=== PATIENT | male | born 1990 | race Caucasian/White ===

== ENCOUNTER 2018-05-16 20:58 | Inpatient (IN) | payer BC, OTHER ==
[~2018-05-16] VITALS: Ht 185.4 cm; Wt 77.1 kg
--- NOTE | 2018-05-16 22:15 | NUR ---
INTAKE ASSESSMENT BP: 125/73, HR: 84 RR:16, SpO2:98% Pt is in stable condition and is able to be admitted on the unit. Unit protocols regarding medication and vital signs Q4H were explained. Pt verbalized understanding. Will continue admission upon arrival on the unit.
[2018-05-16 22:30] VITALS: BP 126/84
[2018-05-16] MEDS ORDERED: HYDROXYZINE PAMOATE 25 MG CAPSULE PO PRN (22:30)
[2018-05-16] MEDS ORDERED: LOPERAMIDE HCL 2 MG CAPSULE PO PRN ×2 (22:30)
[2018-05-16] MEDS ORDERED: CLONIDINE HCL 0.1 MG TABLET PO PRN (22:30)
[2018-05-16] MEDS ORDERED: MAG HYDROX/AL HYDROX/SIMETH 30 ML LIQUID UDC PO PRN (22:30)
[2018-05-16] MEDS ORDERED: MAGNESIUM HYDROXIDE 30 ML LIQUID UDC PO PRN (22:30)
[2018-05-16] MEDS ORDERED: ONDANSETRON ODT 4 MG TAB.RAPDIS SL PRN (22:30)
[2018-05-16] MEDS ORDERED: ONDANSETRON 4 MG/2 ML VIAL IM PRN (22:30)
[2018-05-16] MEDS ORDERED: DICYCLOMINE HCL 20 MG TABLET PO PRN (22:30)
[2018-05-16] MEDS ORDERED: MIRALAX 17 GM POWD.PACK PO PRN (22:30)
[2018-05-16] MEDS ORDERED: ACETAMINOPHEN 325 MG TABLET PO PRN (22:30)
[2018-05-16] MEDS ORDERED: BUPRENORPHINE HCL 2 MG TAB.SUBL SL PRN (22:30)
--- NOTE | 2018-05-16 22:35 | NUR ---
Admission Note Patient is a 27-year-old, male, arrived to the floor at 2227 to be admitted for medically supervised withdrawal from Opiates (Heroin and Suboxone). The patient was born and raised in [place] [facility]. He flew in today from the said city. The patient appears mildly intoxicated from Suboxone and verbalized having racing thoughts. Patient is also observed to be in depressed mood. No complaints of pain at this time, with verbalization: "I think I'm good for tonight. I'm sure I will actually start withdrawals in the morning." When asked for his reason of being here at [facility] for detoxification, patient verbalized: "I want to be completely off any substance including Suboxone. I want to be free from using anything so I could focus on finishing college and my girlfriend and have kids." Pt is AAOx4 and cooperative. Patient reports being allergic to Pseudoephedrin. The patient states that withdrawal symptoms include anxiety, sweating, flushed skin, chills, hot flushes, restless legs, emotional volatility, generalized muscle pain and agitation. Patient denies a history of seizure but verbalized experiencing multiple blackouts due to Heroin use. Patient stated that yesterday, 05/15/2018, he "passed out" while in his car at the side of the road after he injected 0.5 gm of Heroin. Patient stated that he could recall the last 3 treatment and detox centers he has been to and they are as follows: 1) [facility] [place], [place] x 30 days- April 2017 2) [facility] ([facility], [place] x 7 days in 2012 and 2013 3) [place], [place] x 30 days in 2011 Per patient, after he was released from [facility], he was prescribed Suboxone 8 mg SL BID PRN and he said that he was using 8 mg SL daily for the past year until he relapsed from using Heroin 2 weeks ago. His reason for relapsing is due to meeting old friends who are using Heroin and influenced him to use. Substance use are as follows: 1. Heroin- Patient stated that he first used at age 20. He verbalized that he first used this substance "as a way to be accepted among friends in school." He started smoking Heroin but eventually shift to using IV. For the past 2 weeks, he has been using 0.5 gm IV daily except on 05/10/18 when he used Suboxone on that day. Last use was on 05/15/2018 at 2000 and used 0.5 gm IV. 2) Suboxone- Patient stated that he first used at age 25. He verbalized that he was prescribed this medication by his PCP to control his Heroin cravings. He has been using this medication for 1 year since his discharge from [facility] last April 2017 until he relapsed and used Heroin instead 2 weeks ago. For the past 2 weeks, patient only used twice and used 8 mg SL each time on 05/10/2018 and 05/16/2018 1400. 3) Alcohol: Wine and Beer-Patient stated that he first used at age 16 because "you are cool when you drink because everybody in school started doing it." He explained that "alcohol is not really a problem for me." Patient verbalized that he drinks every other day, either 1 glass/150 ml of wine or 1 can of 12-oz beer. He would only drink wine for the day or beer for the day, never both. Last drink was on 05/14/2018, 1 12-oz can of beer. Patient verbalized that his parents are and that he lives with his mother. He stated that his father has a history of Alcoholism and Cocaine use. His mother and girlfriend are very supportive of him and are his main support system." Patient stated that he has no Psychiatrist. His Primary Care Physician is Dr. Jean Conley in [place], [place]. Patient verbalized that he is determined to quit his use of Heroin and Suboxone so that he could finish school, have a career and start a family. He also wants to get sober for good because of his overdose history. He verbalized that yesterday, he passed out on the side of the street inside his car after he injected Heroin, "something bad could have happened to me yesterday and I could have ." His longest sobriety was 7 months in 2011 when he was in long term. Patient verbalized that he is interested in going to a treatment center after his stay at [facility]. Currently, he took a leave from his work at [employer]. Vital signs are taken and as follows: BP: 126/54, HR: 83, RR: 18, SpO2: 98%, Temp: 98.1. Pulse is palpable and regular. Respirations are even and unlabored. Lung sounds clear. Bowel sounds active x4 quadrants. Last bowel movement was in the morning of yesterday, 05/15/2018. Per patient, his bowel movement is mostly every other day. No abdominal pain reported. Skin is intact. Patient follows a regular diet at home. Full Code. Height is 6'1" and weighs 170 lbs per standing scale. Patient stated that he chews tobacco about half a can every day. Patient denies smoking cigarettes. Patient stated that his medical history are as follows: Anxiety, Depression (For which he takes Sertraline 200 mg PO daily), Left Knee ACL tear and repair (2009), Suicide Attempt in 2012 by Overdosing on Heroin, 5150 due to the said Suicide Attempt at [facility]. Patient reports no Suicidal Ideation nor Homicidal Ideation at the moment. Patient stated that besides Sertraline, he takes Suboxone 8 gm SL BID PRN. Educated patient about plan of care including detox, group therapy, individual therapy, and discharge planning. Encouraged patient to be open and honest and verbalized support for patient in his recovery. Upon admission to the floor, COWS=7. Dr. Olvera was at the unit and was able to assess the patient. Patient will start on a 3-day Subutex taper tomorrow with PRN Subutex available for tonight. Will continue to monitor.
[2018-05-16 22:39] LABS: BASOPHILS % (AUTO) 0.6 % (0.0-2.0); EOSINOPHILS # (AUTO) 0.1 K/uL (0.0-0.7); EOSINOPHILS % (AUTO) 1.8 % (0.0-7.0); HEMATOCRIT 39.3 % (36.7-47.1); HEMOGLOBIN 13.7 g/dL (12.5-16.3); LYMPHOCYTES # (AUTO) 2.2 K/uL (20.0-40.0); LYMPHOCYTES % (AUTO) 32.4 % (20.5-51.5); MEAN CORPUSCULAR HEMOGLOBIN 29.2 uug (23.8-33.4); MEAN CORPUSCULAR HGB CONC 35 g/dL (32.5-36.3); MEAN CORPUSCULAR VOLUME 83.7 fL (73.0-96.2); MONOCYTES # (AUTO) 0.5 K/uL (2.0-10.0); MONOCYTES % (AUTO) 7.8 % (0.0-11.0); NEUTROPHILS # (AUTO) 3.9 K/uL (1.8-8.9); NEUTROPHILS % (AUTO) 57.4 % (38.5-71.5); PLATELET COUNT (AUTO) 328 K/uL (152-348); RED BLOOD CELL COUNT(AUTO) 4.69 MIL/uL (4.06-5.63); WHITE BLOOD COUNT (AUTO) 6.8 K/uL (3.6-10.2)
[2018-05-16 22:45] LABS: *AMPHETAMINE, URINE NEGATIVE (NEGATIVE); *BARBITURATE, URINE NEGATIVE (NEGATIVE); *CANNABINOID, URINE NEGATIVE (NEGATIVE); *COCCAINE, URINE NEGATIVE (NEGATIVE); *OPIATE, URINE POSITIVE (NEGATIVE); *PHENCYCLIDINE SCREEN,URINE NEGATIVE (NEGATIVE)
[2018-05-16 22:50] LABS: ALANINE AMINOTRANSFERASE 34 U/L (16-63); ALKALINE PHOSPHATASE 70 U/L (50-136); AMYLASE 46 U/L (25-115); ASPARTATE AMINOTRANSFERASE 15 U/L (15-37); BILIRUBIN,TOTAL 0.3 mg/dL (0.2-1.0); CARBON DIOXIDE 31 mmol/L (21-32); CHLORIDE 101 mmol/L (98-107); CREATININE 0.8 mg/dL (0.6-1.3); GLUCOSE 116 mg/dL (74-106); LIPASE 73 U/L (73-393); MAGNESIUM 1.9 mg/dL (1.8-2.4); POTASSIUM 3.9 mmol/L (3.5-5.1); TOTAL PROTEIN, SERUM 7.1 g/dL (6.4-8.2); UREA NITROGEN, BLOOD 13 mg/dL (7-18)
[2018-05-16 22:51] LABS: ETHANOL < 3 MG/DL (0-0)
[2018-05-16 22:59] LABS: THYROID STIMULATING HORMONE 1.934 mIU/mL (0.358-3.740)
[2018-05-16] MEDS: diphenhydrAMINE 50 MG CAPSULE PO PRN (23:36)
--- NOTE | 2018-05-16 23:36 | NUR ---
PRN Benadryl Pt c/o inability to sleep. Administered Benadryl 50 mg PO PRN as ordered. Will reassess.
[2018-05-17] VITALS: BP 122/79
[2018-05-17] MEDS ORDERED: BUPR1FIL3 SL (00:05)
--- NOTE | 2018-05-17 00:40 | NUR ---
Benadryl reassess Patient is asleep on bed, with no SOB nor facial grimacing noted.
[2018-05-17] MEDS ORDERED: SERT100T12 PO (00:42)
[2018-05-17 04:00] VITALS: BP 127/85
--- NOTE | 2018-05-17 07:23 | NUR ---
End of Shift Patient asleep on bed but arousable, noted to be anxious and c/o increasing generalized tensed muscle, currently=3/10. Per patient, he wanted to sleep some more and would be ready by the time the morning med pass comes. Patient continues to be melancholic and with intermittent facial grimacing. Encouraged patient to use call light button when needing assistance. Call light button within reach. Latest COWS=10, slept for 5 hours. Endorsed to AM shift nurse for continuity of care.
--- NOTE | 2018-05-17 07:30 | NUR ---
Start of Shift Construction Supervisor/Carpenter received report on 27 year old male admitted to [facility] on 05/16/18 for medical management of Opiate withdrawals. Pt endorses an allergy to Pseudo-Ephedrine, full code and regular diet. Pt denies any PMH, with a PPH of anxiety and depression. Pt denies any seizure history. Pt is scheduled to start a Subutex taper this am last COWS 10, per NOC report. Pt administered Benadryl(insomnia) as PRN medication on NOC, per report. Construction Supervisor/Carpenter encounters pt resting in bed. Pt is A/O x4 and able to make his needs known. Pt with a linear thought process and clear speech pattern. Pt endorses starting to withdraw at this time, with last use of Suboxone at 1400 on 05/16/18. Pt endorses nausea, chills, and body aches. Pt is diaphoretic, tremulous, anxious and piloerection of the skin. Construction Supervisor/Carpenter educated pt on detoxification process related to pts taper and treatment of symptoms. Pt endorses previous withdrawal episodes and has experience precipitious withdrawals in the past and understands the importance of not starting taper too soon. Bed in low position with wheels locked and side rails up x2. Will continue to monitor, support and encourage according to plan of care.
--- NOTE | 2018-05-17 08:00 | NUR ---
COWS 16 Pt states, " It is starting, I am starting." Pt is diaphoretic, tremulous, anxious and restless with a stuffy nose and piloerection of the skin. Pt complains of nausea and body aches, along with chills. Will continue to monitor, support and encourage according to plan of care. Addendum: 05/17/18 at 1302 by HUSSAIN COOLEY RN LE: Pt denies the need for any medication to treat symptoms at this time, " I am doing all right."
[2018-05-17 08:32] VITALS: BP 114/68
[2018-05-17] MEDS ORDERED: TUBERCULIN,PURIF.PROT.DERIV. 5 TU/0.1 ML TEST ID ONE (09:00)
[2018-05-17] MEDS: BUPRENORPHINE HCL 2 MG TAB.SUBL SL SCH ×2 (09:37→20:30)
--- NOTE | 2018-05-17 12:50 | NUR ---
COWS 18 Pt is restless, anxious, diaphoretic, nauseous, has chills and complains of body aches and stomach cramps. Pt denies the need for PRN Subutex at this time. Will continue to monitor, support and encourage according to plan of care.
[2018-05-17 12:51] VITALS: BP 136/77
[2018-05-17] MEDS ORDERED: SERTRALINE HCL 100 MG TABLET PO SCH (13:30)
[2018-05-17] MEDS: SERTRALINE HCL 100 MG TABLET PO SCH (13:59)
--- NOTE | 2018-05-17 14:03 | NUR ---
PRN Subutex Pt with COWS 18, complains of muscle aches, stomach cramps and nausea. Pt is anxious, restless, diaphoretic, tremulous and has piloerection of the skin. Freelance Web Designer administered medication per MD order with pt tolerating well. Will continue to monitor, support and encourage according to plan of care.
--- NOTE | 2018-05-17 14:33 | NUR ---
PRN Subutex Re-Assessment Pt endorses some relief. Pt remains with nausea and muscle discomfort. Pt is anxious and restless with moist skin and piloerecton of the skin. Will continue to monitor, support and encourage according to plan of care.
[2018-05-17 16:54] VITALS: BP 138/75
--- NOTE | 2018-05-17 16:57 | NUR ---
COWS 15 Pt has tremors, diaphoresis and anxiety, complains of stomach ache and chills.Will continue to monitor, support and encourage according to plan of care.
--- NOTE | 2018-05-17 19:01 | NUR ---
End of Shift Working Foreman provided report on 27 year old male admitted to [facility] on 05/16/18 for medical management of Opiate withdrawals. Pt endorses an allergy to Pseudo-Ephedrine, full code and regular diet. Pt denies any PMH, with a PPH of anxiety and depression. Pt denies any seizure history. Pt started a Subutex this morning with last COWS 15. Pt administered Subutex(withdrawals symptoms) as PRN medication. Pt is A/O x4 and makes needs known. Linear thought process with clear speech pattern. Flat affect with depressed mood. Pt has isolated to his room, guarded and withdrawn from peer. Cooperative on approach. Pt is diaphoretic, fine tremors, anxious, restless and complains of nausea, muscle spasms and chills, denies need for additional medication. Bed in low position with wheels locked and side rails up x2.
[2018-05-17 20:00] VITALS: BP 125/86
--- NOTE | 2018-05-17 20:00 | NUR ---
Start of Shift Patient sitting on bed, noted to have tremors, facial grimacing and c/o increasing anxiety. Per patient, generalized muscle pain=5/10. PRN medications will be administered. Patient is also diaphoretic and tremulous. Encouraged patient to use call light button when needing assistance. Call light button within reach. Latest COWS=14. Will continue to monitor.
[2018-05-17] MEDS: METHOCARBAMOL 750 MG TABLET PO PRN (20:30)
[2018-05-17] MEDS: diphenhydrAMINE 50 MG CAPSULE PO PRN (20:30)
--- NOTE | 2018-05-17 20:31 | NUR ---
PRN Robaxin and Benadryl Pt c/o generalized muscle pain=7/10 and inability to sleep. Administered Robaxin 750 mg PO PRN and Benadryl 50 mg PO PRN. Will reassess.
--- NOTE | 2018-05-17 21:30 | NUR ---
Lottie and Bridget reassess Patient verbalized that his generalized muscle pain decreased to 3/10 and verbalized feeling sleepy.
[2018-05-18] VITALS: BP_SYST 122; BP_DIAS 3; BP_DIAS 63
[2018-05-18 04:00] VITALS: BP 115/61
--- NOTE | 2018-05-18 07:13 | NUR ---
End of Shift Patient continues to have tremors along with c/o increasing anxiety and generalized muscle, current level =3-4/10. Patient is starting to feel tremulous. Patient also noted to be melancholic and isolative. Call light within reach. Latest COWS=10, slept for 7 hours. Endorsed to AM shift nurse for continuity of care.
--- NOTE | 2018-05-18 07:30 | NUR ---
Start of Shift Stone Splitter received report on 27 year old male admitted to [facility] on 05/16/18 for medical management of Opiate withdrawals. Pt endorses an allergy to Pseudo-Ephedrine, full code and regular diet. Pt denies any PMH, with a PPH of anxiety and depression. Pt denies any seizure history. Pt is currently on a 3 day Subutex taper with last COWS 10, per NOC report. Pt administered Benadryl(insomnia) and Robaxin(muscle spasms) as PRN medication on NOC, per report. Stone Splitter encounters pt in pts room. Pt is A/O x4 and makes needs known. Calm, cooperative and drowsy. Denies any complaints at this time. Bed in low position with wheels locked and side rails up x2. Will continue to monitor, support and encourage according to plan of care.
--- NOTE | 2018-05-18 08:00 | NUR ---
COWS 12 Pt is diaphoretic with fine tremors. Pt is anxious and restless with nausea and body aches and muscle spasms, with chills. Estate Tax Examiner will continue to monitor, support and encourage according to plan of care.
[2018-05-18 08:06] LABS: HEPATITIS B SURFACE AG Negative (Negative)
[2018-05-18 08:17] VITALS: BP 120/73
[2018-05-18] MEDS: SERTRALINE HCL 100 MG TABLET PO SCH (08:32)
[2018-05-18] MEDS: BUPRENORPHINE HCL 2 MG TAB.SUBL SL SCH ×3 (08:32→20:21)
[2018-05-18 12:00] VITALS: BP 116/79
--- NOTE | 2018-05-18 12:00 | NUR ---
COWS 14 Pt is diaphoretic, tremulous, anxious and restless with complaints of nausea and chills. Will continue to monitor, support and encourage according to plan of care.
[2018-05-18 16:30] VITALS: BP 119/78
--- NOTE | 2018-05-18 16:30 | NUR ---
COWS 13 Pt is diaphoretic, anxious and restless with nausea, chills, agitation and myalgia. Will continue to monitor, support and encourage according to plan of care.
--- NOTE | 2018-05-18 19:10 | NUR ---
End of Shift Survey Associate provided report on 27 year old male admitted to [facility] on 05/16/18 for medical management of Opiate withdrawals. Pt endorses an allergy to Pseudo-Ephedrine, full code and regular diet. Pt denies any PMH, with a PPH of anxiety and depression. Pt denies any seizure history. Pt is currently on a 3 day Subutex taper with last COWS 13, recorded at 1630. Pt is anxious and restless, diaphoretic and tremulous. Pt has complaints of nausea and chills along with myalgia. Pt not administered any PRN medication this shift. Pt is A/O x4 and makes needs known. Linear thought process and clear speech pattern. Pt is visible on the unit and social with peers. Bed in low position with wheels locked and side rails up x2.
[2018-05-18 20:00] VITALS: BP 124/84
--- NOTE | 2018-05-18 20:00 | NUR ---
Start of Shift Pt is a 27 year old male admitted for Opiate withdrawal, placed on a 3 day Subutex taper. During time of assessment, pt presents in room and is noted with anxiety, restlessness, muscle aches, nasal stuffiness and tearing eyes, tremors noted COWS 14, scheduled taper medications due. Safety measures in place, will continue to monitor.
[2018-05-18] MEDS: diphenhydrAMINE 50 MG CAPSULE PO PRN (21:55)
[2018-05-18] MEDS: METHOCARBAMOL 750 MG TABLET PO PRN (21:55)
--- NOTE | 2018-05-18 21:55 | NUR ---
PRN Robaxin & Benadryl Administration Pt reports muscle aches in lower legs, and requests sleeping aid. Robaxin 750mg PRN and Benadryl 50mg PRN administered. Safety measures in place, will continue to monitor.
--- NOTE | 2018-05-18 22:55 | NUR ---
PRN Robaxin & Benadryl Reassessment Pt is noted to be in bed, sleeping, resp even/unlabored. Safety measures in place, will continue to monitor.
[2018-05-19] VITALS: BP 136/81
--- NOTE | 2018-05-19 | NUR ---
COWS Deferred COWS deferred d/t pt sleeping, to assess while pt is awake as ordered. Pt is sleeping, resp even/unlabored, safety measures in place, will continue to monitor.
[2018-05-19 04:00] VITALS: BP 125/81
--- NOTE | 2018-05-19 07:10 | NUR ---
End of Shift Pt is a 27 year old male admitted for Opiate withdrawal, placed on a 3 day Subutex taper. During shift, pt presented in room and was noted with anxiety, restlessness, muscle aches, nasal stuffiness and tearing eyes, tremors noted - scheduled medications administered, latest COWS 14. Robaxin 750mg PRN and Benadryl 50mg PRN administered during shift. Pt slept for 6 hours, intake of 500 ml PO and voids x4. Safety measures in place. Endorsed onto day shift nurse.
--- NOTE | 2018-05-19 07:35 | NUR ---
START OF SHIFT Pt is a 27 yr old male, AA&Ox4. pt was admitted on 05/16/18 for Opiate withdrawal and is on 3 dya Subutex taper as ordered. Received report from steward/stewardess night nurse. Pt was given Robaxin PRN Benadryl PRN during the night. Pt was able to sleep for 6 hrs. Last COWS score was 14. Pt is observed with anxiety m/b difficulty staying still. Pt is c/o muscle aching, restlessness, sweats and lack of appetite. Skin is intact, warm and moist to touch. Pt was encouraged increase fluid intake for hydration. Safety precautions observed. Call light is within reach. Will continue to monitor.
[2018-05-19 08:00] VITALS: BP 99/57
[2018-05-19] MEDS ORDERED: BUPRENORPHINE HCL 2 MG TAB.SUBL SL SCH (09:00)
[2018-05-19] MEDS: IBUPROFEN 400 MG TABLET PO PRN ×2 (09:04→17:26)
[2018-05-19] MEDS: SERTRALINE HCL 100 MG TABLET PO SCH (09:04)
--- NOTE | 2018-05-19 09:06 | NUR ---
PRN GIVEN Pt is c/o generalized body aches 5/10. Pt is noted with anxiety, restlessness and sweats. Pt is c/o chills. COWS score was 10. Pt received Motrin 400mg PO PRN and Subutex 2mg SL as scheduled at 0900. Medication was raheem well. Encouraged increase fluid intake for hydration. Will continue to monitor.
--- NOTE | 2018-05-19 10:02 | NUR ---
PRN RE-ASSESSMENT Motrin 400mg PO PRN was effective. Pt denies any pain at this time. Encouraged increase fluid intake. will continue to monitor.
[2018-05-19] MEDS ORDERED: TRAZODONE 50 MG TABLET PO PRN (10:15)
[2018-05-19 12:00] VITALS: BP 133/79
--- NOTE | 2018-05-19 12:00 | NUR ---
COWS 6 Pt is c/o anxiety, restlessness, sweats and chills. Pt states of yawning more than once. COWS score was 6. Will continue to monitor
[2018-05-19] MEDS ORDERED: TRAZ-213 PO (13:09)
[2018-05-19] MEDS ORDERED: SERT100T12 PO (13:09)
[2018-05-19] MEDS ORDERED: HYDR-3895 PO (13:09)
[2018-05-19] MEDS ORDERED: METH-406 PO (13:09)
[2018-05-19] MEDS ORDERED: IBUP-1953 PO (13:09)
[2018-05-19] MEDS ORDERED: CLON0.1T14 PO (13:09)
[2018-05-19 16:00] VITALS: BP 122/67
[2018-05-19] MEDS: METHOCARBAMOL 750 MG TABLET PO PRN ×2 (17:26→23:03)
--- NOTE | 2018-05-19 17:27 | NUR ---
PRN GIVEN Pt c/o generalized body aches 6/10 and muscle spasms. Facial grimacing is observed. Pt was given Motrin 400mg PO PRN and Robaxin 750mg PO PRN as ordered. Encouraged increase fluid intake. Will continue to monitor.
--- NOTE | 2018-05-19 18:27 | NUR ---
PRN RE-ASSESSMENT Motrin 400mg PO PRN and Robaxin 750mg PO PRN was effective. Encouraged increase fluid intake for hydration.
--- NOTE | 2018-05-19 18:51 | NUR ---
START OF SHIFT NOTE: This is report on patient, an 27 year old male, admitted to [facility] on 05/16/2018 for Opioid withdrawal, completed ordered 3 day Subutex taper, which tolerated well. The patient remains compliant with treatment plan, medications, and diet regime. Patient scheduled for discharging tomorrow at 0930. The patient is alert and oriented x4, with stable gait, soft clear speech. The patient reports allergy to Pseudoephedrine, is on Full Code, Regular Diet, Fall and Seizures Precautions. The patient denies seizures history. Throughout the day shift, patient presented with mild withdrawal symptoms such as anxiety, agitation, depression, nervousness, mild body aches, myalgia, sweating, restlessness, fatigue, and yawning. Last COWS=6 at 1600. PRN Motrin 400 mg PO administrated for pain at 1726, PRN Robaxin 750 mg PO administrated for myalgia at 1726, and were effective by day shift nurse report. Encouraged to attend group activities. Encouraged to intake fluids as tolerated. All needs met. Safety measures: Call light within reach, bed locked in lowest position, padded bed rails up x2. Endorsed by outgoing day shift nurse. Will continue to monitor closely.
--- NOTE | 2018-05-19 18:51 | NUR ---
END OF SHIFT Pt is a 27 yr old male, AA&Ox4. Pt was admitted on 05/16/18 for opiate w/d and has completed a 3 day Subutex taper as ordered. Pt has been cooperative with medication regimen and plan of care. Pt has been attending group therapy during the day. Pt has been c/o anxiety, agitation, muscle aching, restlessness and sweats. Skin is intact, warm and moist to touch. Pt received Motrin 400mg PO PRN at 0900 for muscle aches and received Motrin 400mg PO PRN and Robaxin 750mg PO PRN at 1726. Medication was effective. Last COWS score was 6 at 1600. Pt is to be discharged tomorrow on 05/20/18 to [facility] . Pt was encouraged increase fluid intake for hydration. Safety precautions observed. Endorsed to master automotive technician nurse to continue with care.
[2018-05-19 20:00] VITALS: BP 129/80
--- NOTE | 2018-05-19 20:00 | NUR ---
COWS ASSESSMENT COWS=9 at 1999. The patient appears sad ,worried, with anxious mood and flat affect. The patient presented with mild withdrawal symptoms such as anxiety, agitation, depression, nervousness, tachycardia (106 bpm), obv. irritability, sweating, restlessness, fatigue, and yawning. Encouraged to intake fluids as tolerated. All needs met. Safety measures: Call light within reach, bed locked in lowest position, padded bed rails up x2. Will continue to monitor closely.
--- NOTE | 2018-05-19 21:19 | NUR ---
PRN VISTARIL 50 MG PO ADMINISTRATION Patient c/o increased anxiety. PRN Vistaril 50 mg PO administrated at 2118 as ordered. The patient tolerated well. Safe and calm environment provided. All needs met. Safety measures: Call light within reach, bed locked in lowest position, padded bed rails up x2. Will continue to monitor closely.
--- NOTE | 2018-05-19 22:19 | NUR ---
PRN VISTARIL PO RE-ASSESSMENT Patient reports, "Medication help to me, and my anxiety decreased now". PRN Vistaril 50 mg PO administrated at 2118 was effective. Safe and calm environment provided. All needs met. Safety measures: Call light within reach, bed locked in lowest position, padded bed rails up x2. Will continue to monitor closely.
--- NOTE | 2018-05-19 23:00 | NUR ---
PRN DESYREL (TRAZODONE 50 MG) 50 MG PO ADMINISTRATION Patient c/o insomnia. PRN Desyrel ([id number] mg) 50 mg PO administrated at 2300 as ordered. The patient tolerated well. Safe and calm environment provided. All needs met. Safety measures: Call light within reach, bed locked in lowest position, padded bed rails up x2. Will continue to monitor closely.
--- NOTE | 2018-05-19 23:03 | NUR ---
PRN ROBAXIN (METHOCARBAMOL 750 MG TABLET) 750 MG PO ADMINISTRATION Patient c/o myalgia. PRN Robaxin (Methocarbamol 750 mg tablet) 750 mg PO administrated at 2303 as ordered. The patient tolerated well. Safe and calm environment provided. All needs met. Safety measures: Call light within reach, bed locked in lowest position, padded bed rails up x2. Will continue to monitor closely.
[2018-05-20] VITALS: BP 115/53
--- NOTE | 2018-05-20 | NUR ---
PRN RE-ASSESSMENT Patient is sleeping. Respirations are even and unlabored. RR:16. PRN Desyrel ([id number] mg) 50 mg PO administrated at 2300 was effective. The patient tolerated well. Safe and calm environment provided. All needs met. Safety measures: Call light within reach, bed locked in lowest position, padded bed rails up x2. Will continue to monitor closely.
--- NOTE | 2018-05-20 | NUR ---
COWS DEFERRED Patient is sleeping. Respirations are even and unlabored. COWS deferred r/t patient sleeping. COWS assessment will be done while patient is awake as ordered. Safe and calm environment provided. All needs met. Safety measures: Call light within reach, bed locked in lowest position, padded bed rails up x2. Will continue to monitor closely.
--- NOTE | 2018-05-20 00:03 | NUR ---
PRN RE-ASSESSMENT Patient is sleeping. Respirations are even and unlabored. RR:16. PRN Robaxin (Methocarbamol 750 mg tablet) 750 mg PO administrated at 2303 was effective. The patient tolerated well. Safe and calm environment provided. All needs met. Safety measures: Call light within reach, bed locked in lowest position, padded bed rails up x2. Will continue to monitor closely.
[2018-05-20 04:00] VITALS: BP 106/55
--- NOTE | 2018-05-20 04:00 | NUR ---
COWS ASSESSMENT COWS=8 at 2000. The patient c/o anxiety, agitation, depression, nervousness, Irritability, sweating, restlessness, fatigue, and yawning. Encouraged to intake fluids as tolerated. All needs met. Safety measures: Call light within reach, bed locked in lowest position, padded bed rails up x2. Will continue to monitor closely.
--- NOTE | 2018-05-20 07:22 | NUR ---
END OF SHIFT NOTE: Endorsed patient, an 27 year old male, presented for Opioid withdrawal, completed ordered 3 day Subutex taper, which tolerated well. The patient is alert and oriented x4, with stable gait, soft clear speech. The patient reports allergy to Pseudoephedrine, is on Full Code, Regular Diet, Fall and Seizures Precautions. The patient denies seizures history. Patient c/o anxiety, agitation, depression, nervousness, myalgia, sweating, restlessness, fatigue, and yawning. COWS=9 at 2000, COWS=8 at 0000. The most recent COWS =8 at 0400. PRN Vistaril 50 mg PO administrated for anxiety at 2119, PRN Desyrel ([id number] mg) 50 mg PO administrated at 2300, PRN Robaxin (Methocarbamol 750 mg tablet) 750 mg PO administrated for myalgia at 2303, and were effective. The patient remains compliant with treatment plan, medications, and diet regime. Patient slept for 5 hours, intake 1012 ml, output: voided x1. Patient scheduled for discharging today at 0930. Encouraged to attend group activities. Encouraged to intake fluids as tolerated. All needs met. Safety measures: Call light within reach, bed locked in lowest position, padded bed rails up x2. Endorsed to incoming day shift nurse.
--- NOTE | 2018-05-20 07:30 | NUR ---
Start of Shift Wagon Driver received report on 27 year old male admitted to [facility] on 05/16/18 for medical management of Opiate withdrawals. Pt endorses an allergy to Pseudo-Ephedrine, full code and regular diet. Pt denies any PMH, with a PPH of anxiety and depression. Pt denies any seizure history. Pt has completed a three day Subutex taper and is scheduled to discharge this morning. Pt administered Trazodone(insomnia), Vistaril(anxiety) and Robaxin(muscle spasms) as PRN medication on NOC, per report. Wagon Driver encounters pt in pts room. Pt is resting with eyes closed, even and unlabored respirations noted. Bed in low position with wheels locked and side rails up x2. Will continue to monitor, support and encourage according to plan of care.
--- NOTE | 2018-05-20 08:00 | NUR ---
COWS 5 Pt is anxious and restless with moist skin and complains of myalgia and nausea. Will continue to monitor, support and encourage according to plan of care.
[2018-05-20] MEDS: SERTRALINE HCL 100 MG TABLET PO SCH (08:28)
[2018-05-20 08:33] VITALS: BP 109/62
--- NOTE | 2018-05-20 09:25 | NUR ---
Discharge Assessment Pt is A/O x4 and makes his needs known. Linear thought process with clear speech pattern. Pt is anxious and restless. States, " I do not know if I am ready to leave physically." When asked about emotionally ready for treatment, pt states, " I am ready to get sober." Pt with a flat affect and depressed mood. Pt was educated on importance of continued sobriety and continued follow-up care. Pt was educated on discharge diagnosis, discharge educational material and all related discharge paperwork, including discharge packet. Pt was educated on name, route, dose, timing and indication of all prescribed medications. Pt was provided with prescriptions. Pt denies any further comments, questions or concerns. Pt was escorted to private car for transportation to [facility].
== END 2018-05-20 09:25 | disposition other institution (70) | DRG 895 ==
LOC: SRC 21:38
PROVIDERS: ADMIT Family Medicine Addiction Medicine; ATTEND Family Medicine Addiction Medicine
PROC: HZ2ZZZZ Detoxification Services for Substance Abuse Treatment (ICD-10-PCS; principal; 2018-05-16)
PROC: HZ41ZZZ Group Counseling for Substance Abuse Treatment, Behavioral (ICD-10-PCS; 2018-05-17)
DX: F11.23 Opioid dependence with withdrawal (principal); Z91.5 Personal history of self-harm; F17.210 Nicotine dependence, cigarettes, uncomplicated; F41.9 Anxiety disorder, unspecified; Z81.3 Family history of other psychoactive substance abuse and dependence; F32.9 Major depressive disorder, single episode, unspecified
CPT/HCPCS: 36415; 70030-TC; 80307; 80361; 83690; 83735; 84443; 85025; 86592; 86705; 86803; 87340; 87806; A4663; G0480; Q0163